=== PATIENT | female | born 1960 | race Caucasian/White ===

== ENCOUNTER 2021-04-15 02:23 | Emergency (ER) | payer BC ==
[~2021-04-15] VITALS: Ht 165.1 cm; Wt 121.4 kg
[~2021-04-15 02:23] MED LIST changes: -PRINIVIL20 MG PO
[2021-04-15 02:31] VITALS: TEMP 97.9
[2021-04-15 03:10] LABS: BASO % 0.4 % (0.0-2.0); EOS # 0.2 K/mm3 (0.0-0.7); EOS % 2.6 % (0-4.0); GRAN # 4.6 K/mm3 (1.4-6.5); GRAN % 61.3 % (42.2-75.2); HEMATOCRIT 42.8 % (37.0-47.0); HEMOGLOBIN 13.6 g/dl (12.5-16.0); LYMPH % 26.3 % (20.0-51.0); MEAN CELL VOLUME 84 fl (80.0-100.0); MEAN CORPUSCULAR HEMOGLOBIN 27 pg (27.0-31.0); MEAN CORPUSCULAR HGB CONC 32 g/dl (33.0-37.0); MEAN PLATELET VOLUME 11.2 fl (7.4-10.4); MONO # 0.7 K/mm3 (0.1-0.6); PLATELET COUNT 282 K/mm3 (130-400); RED BLOOD COUNT 5.07 M/mm3 (4.10-5.30); REDCELL DISTRIBUTION WIDTH-CV 13.3 % (11.5-14.5)
[2021-04-15 03:21] LABS: ALBUMIN 3.9 gm/dL (3.4-4.8); BILIRUBIN,TOTAL 0.6 mg/dL (0.2-1.2); CALCIUM 9.6 mg/dL (8.4-10.2); CREATININE, serum 0.59 mg/dL (0.57-1.11); POTASSIUM 3.8 mmol/L (3.5-4.5); TOTAL PROTEIN 6.9 gm/dL (6.2-8.1)
[2021-04-15] MEDS ORDERED: PRINIVIL20 MG PO (03:48)
[2021-04-15 04:47] VITALS: BP 157/79; PULSE 72
== END 2021-04-15 04:47 | disposition home or self-care (01) ==
LOC: COL.ER 02:23
PROVIDERS: Student in an Organized Health Care Education/Training Program
DX: R10.13 Epigastric pain (principal); R10.12 Left upper quadrant pain

== ENCOUNTER → 2021-04-15 | Outpatient (CLI) | payer BC ==
[~2021-04-15] MED LIST: NO HOME MEDICATIONS; NORCO 325 MG-51 TAB PO; PRINIVIL20 MG PO
== END ==
LOC: COL.RAD 11:03
DX: K80.20 Calculus of gallbladder without cholecystitis without obstruction (principal); N28.1 Cyst of kidney, acquired